=== PATIENT | male | born 1985 | race Two or more races ===

== ENCOUNTER 2020-08-13 05:45 | Inpatient (IN) | payer OTHER ==
[~2020-08-13] VITALS: Ht 188 cm; Wt 142.5 kg
[2020-08-13 06:44] LABS: Basophils # (auto) 0 10 ^3/uL (0-0.2); Basophils % (auto) 0.3 % (0.0-2.0); Eosinophils # (auto) 0.1 10 ^3/uL (0-0.8); Eosinophils % (auto) 0.8 % (0.0-7.0); Hematocrit 47.7 % (41.0-53.0); Hemoglobin 16.2 g/dL (13.5-17.5); Lymphocytes # (auto) 1.2 10 ^3/uL (0.4-5.4); Mean Corpuscular Volume 88.2 fL (80.0-100.0); Monocytes # (auto) 1.2 10 ^3/uL (0-1.3); Neutrophils # (auto) 7.1 10 ^3/uL (1.6-8.6); Neutrophils % (auto) 73.9 % (37.0-80.0); Nucleated Red Blood Cells % 0.2 %; Platelet Count (auto) 283 10^3/uL (140-450); Red Blood Cells 5.41 10^6/uL (4.5-5.90); Red Cell Distribution Width 13.3 % (11.8-14.3); White Blood Cell 9.6 10^3/uL (4.4-10.8)
[2020-08-13 07:08] LABS: Albumin 3.9 g/dL (3.4-5.0); BUN/Creatinine Ratio 13.8; Calcium 8.8 mg/dL (8.5-10.1); Potassium 3.6 mmol/L (3.5-5.1)
[2020-08-13 07:12] LABS: Bilirubin, Total 0.6 mg/dL (0.2-1.0); Total Protein 7.8 g/dL (6.4-8.2)
[2020-08-13] MEDS ORDERED: HEPARIN SODIUM (PORCINE) 5000 UNITS/ML 1ML VIAL IV ONE (08:30)
[2020-08-13] MEDS ORDERED: LIDOCAINE 2%HCL (LOCAL ANESTH.) INJ 20ML MDV ONE (09:21)
[2020-08-13] MEDS ORDERED: ACETAMINOPHEN 500 MG TAB PO PRN (09:30)
[2020-08-13] MEDS ORDERED: ONDANSETRON HCL 4 MG/2 ML VIAL IV PRN (09:30)
[2020-08-13] MEDS ORDERED: NITROGLYCERIN 0.4 MG SL TAB SL PRN (09:30)
[2020-08-13] MEDS ORDERED: hydrALAZINE HCL 20 MG/ML VL IV PRN (09:30)
[2020-08-13] MEDS ORDERED: MORPHINE SULF INJ 2 MG/ML SYRINGE 1ML IV PRN ×2 (09:30)
[2020-08-13 09:31] LABS: INR 1.07 (0.9-1.15); Partial Thromboplastin Time 29.9 sec (23.0-31.2)
[2020-08-13] MEDS ORDERED: ANGIOMAX 250 MG VIAL IV ONE (09:36)
[2020-08-13] MEDS ORDERED: MIDAZOLAM HCL 1MG/1ML-2 ML VIAL ONE (09:37)
[2020-08-13] MEDS ORDERED: VERAPAMIL 2.5MG/ML INJ 2ML VIAL IV ONE (09:37)
[2020-08-13] MEDS ORDERED: fentaNYL CITRATE 100 MCG/2 ML VL ONE (09:37)
[2020-08-13] MEDS ORDERED: SODIUM CHL 0.9% 0 ML ONE (09:37)
[2020-08-13] MEDS ORDERED: IOHEXOL 350 MG/ML 100ML IJ ONE (09:40)
[2020-08-13] MEDS: ASPirin-EC 81 mg tab PO SCH (10:00)
[2020-08-13] MEDS: FAMOTIDINE 20 MG TAB PO SCH (10:00)
[2020-08-13] MEDS: METOPROLOL TARTRATE 25 MG TAB PO SCH ×2 (10:00→22:00)
[2020-08-13] MEDS: LISINOPRIL 10 MG TAB PO SCH (10:00)
[2020-08-13 10:22] LABS: Cholesterol 176 mg/dL (< 200); Triglycerides 112 mg/dL (< 150)
[2020-08-13 10:24] LABS: HDL Cholesterol 29 mg/dL (40-59); LDL Cholesterol 137 mg/dL (< 100)
[2020-08-13 16:23] VITALS: BP 119/70
[2020-08-13 22:00] VITALS: BP 111/66
[2020-08-13] MEDS ORDERED: ATORVASTATIN 20 MG TAB PO SCH (22:00)
[2020-08-14 05:00] VITALS: BP 127/76
[2020-08-14 06:39] LABS: Basophils # (auto) 0 10 ^3/uL (0-0.2); Basophils % (auto) 0.7 % (0.0-2.0); Eosinophils # (auto) 0.2 10 ^3/uL (0-0.8); Eosinophils % (auto) 2.3 % (0.0-7.0); Hematocrit 46.1 % (41.0-53.0); Hemoglobin 15.6 g/dL (13.5-17.5); Lymphocytes # (auto) 1.3 10 ^3/uL (0.4-5.4); Lymphocytes % (auto) 18.5 % (10.0-50.0); Mean Corpuscular Hemoglobin 29.8 pg (28.0-32.0); Mean Corpuscular Hgb Conc. 33.9 g/dL (32.0-36.0); Mean Corpuscular Volume 87.9 fL (80.0-100.0); Monocytes % (auto) 14.4 % (0.0-12.0); Neutrophils # (auto) 4.6 10 ^3/uL (1.6-8.6); Neutrophils % (auto) 64.1 % (37.0-80.0); Nucleated Red Blood Cells % 0.1 %; Platelet Count (auto) 263 10^3/uL (140-450); Red Blood Cells 5.24 10^6/uL (4.5-5.90); Red Cell Distribution Width 13.1 % (11.8-14.3); White Blood Cell 7.2 10^3/uL (4.4-10.8)
[2020-08-14 06:56] LABS: INR 1.08 (0.9-1.15); Partial Thromboplastin Time 29.2 sec (23.0-31.2)
[2020-08-14 06:59] LABS: BUN/Creatinine Ratio 11.7; Calcium 8.9 mg/dL (8.5-10.1); Potassium 3.8 mmol/L (3.5-5.1)
[2020-08-14 08:00] VITALS: BP 105/55
[2020-08-14 08:26] VITALS: BP 105/55
[2020-08-14] MEDS: METOPROLOL TARTRATE 25 MG TAB PO SCH (10:00)
[2020-08-14] MEDS: FAMOTIDINE 20 MG TAB PO SCH (10:17)
[2020-08-14] MEDS: LISINOPRIL 10 MG TAB PO SCH (10:17)
[2020-08-14] MEDS: ASPirin-EC 81 mg tab PO SCH (10:17)
[2020-08-14 12:17] VITALS: BP 118/72
[2020-08-14 15:28] VITALS: BP 105/55
[2020-08-14 16:39] VITALS: BP 120/60
== END 2020-08-14 16:40 | disposition home health service (06) | DRG 281 ==
LOC: ER 05:45 → TELE 09:30 → TELE-CENTR 15:07
PROVIDERS: ADMIT Nurse Practitioner Acute Care; ATTEND Family Medicine
PROC: 4A023N7 Measurement of Cardiac Sampling and Pressure, Left Heart, Percutaneous Approach (ICD-10-PCS; principal; 2020-08-13)
PROC: B211YZZ Fluoroscopy of Multiple Coronary Arteries using Other Contrast (ICD-10-PCS; 2020-08-13)
PROC: B215YZZ Fluoroscopy of Left Heart using Other Contrast (ICD-10-PCS; 2020-08-13)
DX: I21.4 Non-ST elevation (NSTEMI) myocardial infarction (principal); Z68.41 Body mass index [BMI] 40.0-44.9, adult; F17.210 Nicotine dependence, cigarettes, uncomplicated; E66.01 Morbid (severe) obesity due to excess calories; E78.00 Pure hypercholesterolemia, unspecified; Z82.49 Family history of ischemic heart disease and other diseases of the circulatory system; Z83.3 Family history of diabetes mellitus; Z20.822 Contact with and (suspected) exposure to COVID-19
CPT/HCPCS: 36415; 71045; 80048; 80053; 80061; 83880; 84484; 85025; 85610; 85730; 86850; 86900; 86901; 93005; 93306; 99152; G0378; J2250